=== PATIENT | male | born 1990 | race Asian ===

== ENCOUNTER 2018-12-10 00:25 | Emergency (ER) | payer OTHER ==
[~2018-12-10] VITALS: Ht 170.2 cm; Wt 99.8 kg
[2018-12-10 00:32] VITALS: BP_SYST 150
--- NOTE | 2018-12-10 00:32 | NUR ---
Patient to ER H1 to gown for evaluation. Side rails up.
--- NOTE | 2018-12-10 00:38 | NUR ---
Pt came in today for fingerstick at work. Pt administered Lovenox subcutaneously and accidentally to left thumb. Per patient, he squeezed thumb right away to drain any solution that may have been in. Pt denies any pain, N/V, or fever. No active bleeding noted. No other injuries/complaints per patient or noted.
--- NOTE | 2018-12-10 00:42 | NUR ---
ER Dr. Smith at bedside examining patient.
--- NOTE | 2018-12-10 01:05 | NUR ---
Lab at bedside obtaining blood work. pt tolerated well.
[2018-12-10 01:20] VITALS: BP_SYST 150
--- NOTE | 2018-12-10 01:20 | NUR ---
Patient given written and verbal discharge instructions and verbalizes understanding. ER MD discussed with patient the results and treatment provided. Patient in stable condition. ID arm band removed. No Rx given. Patient educated on pain management and to follow up with PMD. Pain Scale 0. Opportunity for questions provided and answered. Medication side effect fact sheet provided.
[2018-12-11 12:18] LABS: HEPATITIS B CORE AB, IgM Negative (Negative); HEPATITIS B SURFACE AG Negative (Negative); HEPATITIS C VIRUS AB <0.1 s/co ratio (0.0-0.9)
[2018-12-12 04:11] LABS: HEPATITIS Be AG Negative (Negative)
[2018-12-13 03:11] LABS: HEPATITIS Be AB Negative (Negative)
== END 2018-12-10 01:20 | disposition home or self-care (01) ==
LOC: SED 00:25
DX: S61.032A Puncture wound without foreign body of left thumb without damage to nail, initial encounter (principal); R03.0 Elevated blood-pressure reading, without diagnosis of hypertension; W46.1XXA Contact with contaminated hypodermic needle, initial encounter; Y93.89 Activity, other specified; Y92.89 Other specified places as the place of occurrence of the external cause; Y99.8 Other external cause status
CPT/HCPCS: 36415; 86705; 86706; 86707; 86803; 87340; 87350; 87536; 99283

== ENCOUNTER 2019-01-17 07:50 | Outpatient (CLI) | payer OTHER ==
[2019-01-18 08:25] LABS: HEPATITIS B CORE AB, TOTAL Negative (Negative); HEPATITIS B SURFACE AG Negative (Negative); HEPATITIS C VIRUS AB <0.1 s/co ratio (0.0-0.9)
== END 2019-01-17 21:21 | disposition home or self-care (01) ==
LOC: SLB 07:50
PROVIDERS: ATTEND Internal Medicine Hospice and Palliative Medicine
DX: Z77.21 Contact with and (suspected) exposure to potentially hazardous body fluids (principal); S60.949A Unspecified superficial injury of unspecified finger, initial encounter; W46.0XXA Contact with hypodermic needle, initial encounter; Y93.F9 Activity, other caregiving; Y92.239 Unspecified place in hospital as the place of occurrence of the external cause; Y99.0 Civilian activity done for income or pay
CPT/HCPCS: 36415; 86704; 86706; 86803; 87340

== ENCOUNTER 2019-04-23 07:40 | Outpatient (CLI) | payer OTHER ==
[2019-04-24 08:13] LABS: HEPATITIS B CORE AB, TOTAL Negative (Negative); HEPATITIS B SURFACE AG Negative (Negative); HEPATITIS C VIRUS AB <0.1 s/co ratio (0.0-0.9)
== END 2019-04-23 18:00 | disposition home or self-care (01) ==
LOC: SLB 07:40
PROVIDERS: ATTEND Internal Medicine Hospice and Palliative Medicine
DX: Z77.21 Contact with and (suspected) exposure to potentially hazardous body fluids (principal); W46.0XXA Contact with hypodermic needle, initial encounter; T14.8XXA Other injury of unspecified body region, initial encounter; Y93.F9 Activity, other caregiving; Y92.238 Other place in hospital as the place of occurrence of the external cause; Y99.0 Civilian activity done for income or pay; Z20.5 Contact with and (suspected) exposure to viral hepatitis
CPT/HCPCS: 36415; 86704; 86706; 86803; 87340

== ENCOUNTER 2019-07-28 06:48 | Outpatient (CLI) | payer OTHER ==
[2019-07-28 08:09] LABS: BASOPHILS % (AUTO) 0.4 % (0.0-2.0); EOSINOPHILS # (AUTO) 0.1 K/uL (0.0-0.4); EOSINOPHILS % (AUTO) 1.2 % (0.0-4.0); HEMATOCRIT 45.3 % (36-54); HEMOGLOBIN 15.4 g/dL (14.0-18.0); LYMPHOCYTES # (AUTO) 2.1 K/uL (1.0-5.5); MEAN CORPUSCULAR HEMOGLOBIN 31 pg (27-31); MEAN CORPUSCULAR HGB CONC 34 % (32-36); MEAN CORPUSCULAR VOLUME 90 fL (79.0-98.0); MONOCYTES # (AUTO) 0.6 K/uL (0.0-1.0); MONOCYTES % (AUTO) 6.2 % (1.7-9.3); NEUTROPHILS % (AUTO) 68.2 % (40.0-70.0); PLATELET COUNT (AUTO) 237 K/uL (130-430); RED BLOOD CELL COUNT(AUTO) 5.02 MIL/uL (4.2-6.2); RED CELL DISTRIBUTION WIDTH 12.6 % (9.0-15.0); WHITE BLOOD COUNT (AUTO) 8.8 K/uL (4.8-10.8)
[2019-07-28 08:33] LABS: CALCIUM 9.7 mg/dL (8.4-11.0); CREATININE 1.05 mg/dL (0.55-1.30); TOTAL BILIRUBIN 1.1 mg/dL (0.0-1.0)
[2019-07-28 08:34] LABS: ALBUMIN 4.5 g/dL (3.4-4.8)
[2019-07-28 11:57] LABS: THYROID STIMULATING HORMONE 1.15 uIu/mL (0.36-3.74)
[2019-07-29 09:07] LABS: HEMOGLOBIN A1C 5.5 % (4.8-5.6)
== END 2019-07-28 20:00 | disposition still patient (30) ==
LOC: SLB 06:48
PROVIDERS: ATTEND Internal Medicine
DX: Z00.01 Encounter for general adult medical examination with abnormal findings (principal)
CPT/HCPCS: 36415; 80053; 80061; 82306; 82607; 83036; 84443-TC; 84550-TC; 85025

== ENCOUNTER → 2019-10-24 | Outpatient (CLI) | payer OTHER ==
[2019-10-25 05:07] LABS: HEPATITIS B CORE AB, TOTAL Negative (Negative); HEPATITIS B SURFACE AG Negative (Negative); HEPATITIS C VIRUS AB <0.1 s/co ratio (0.0-0.9)
== END | disposition home or self-care (01) ==
LOC: SLB 08:10
PROVIDERS: ATTEND Internal Medicine Hospice and Palliative Medicine
DX: Z77.21 Contact with and (suspected) exposure to potentially hazardous body fluids (principal)
CPT/HCPCS: 36415; 86704; 86706; 86803; 87340

== ENCOUNTER 2019-12-24 09:57 | Emergency (ER) | payer OTHER ==
[~2019-12-24] VITALS: Ht 167.6 cm; Wt 117.9 kg
--- NOTE | 2019-12-24 09:57 | NUR ---
Placed in room 08. Placed on pvc monitor, blood pressure machine and pulse oximeter. To gown for exam. Side rails up.
[2019-12-24 10:00] VITALS: BP_SYST 151
--- NOTE | 2019-12-24 10:00 | NUR ---
PT CAME TO ER FOR CHEST PAIN DESCRIBED PRESSURE SINCE MONDAY.
--- NOTE | 2019-12-24 10:10 | NUR ---
ER at bedside examining patient.
[2019-12-24 10:52] LABS: BASOPHILS % (AUTO) 0.6 % (0.0-2.0); EOSINOPHILS # (AUTO) 0.2 K/uL (0.0-0.4); EOSINOPHILS % (AUTO) 3.2 % (0.0-4.0); HEMATOCRIT 46.3 % (36-54); HEMOGLOBIN 15.7 g/dL (14.0-18.0); LYMPHOCYTES # (AUTO) 2.6 K/uL (1.0-5.5); LYMPHOCYTES % (AUTO) 36.7 % (20.5-51.5); MEAN CORPUSCULAR HEMOGLOBIN 30 pg (27-31); MEAN CORPUSCULAR HGB CONC 34 % (32-36); MEAN CORPUSCULAR VOLUME 87 fL (79.0-98.0); MONOCYTES # (AUTO) 0.6 K/uL (0.0-1.0); MONOCYTES % (AUTO) 8.3 % (1.7-9.3); NEUTROPHILS # (AUTO) 3.6 K/uL (1.8-7.7); NEUTROPHILS % (AUTO) 51.2 % (40.0-70.0); PLATELET COUNT (AUTO) 245 K/uL (130-430); RED BLOOD CELL COUNT(AUTO) 5.32 MIL/uL (4.2-6.2); WHITE BLOOD COUNT (AUTO) 7.1 K/uL (4.8-10.8)
[2019-12-24 11:02] LABS: CALCIUM 9.2 mg/dL (8.4-11.0); POTASSIUM 4.1 mmol/L (3.5-5.1)
[2019-12-24 11:09] LABS: ALBUMIN 3.9 g/dL (3.4-4.8); TOTAL BILIRUBIN 0.8 mg/dL (0.0-1.0)
--- NOTE | 2019-12-24 11:30 | NUR ---
PT RESTING IN GURNEY COMFORTABLY, NO DISTRESS AT THIS TIME.
[2019-12-24 12:14] VITALS: BP_SYST 151
--- NOTE | 2019-12-24 12:14 | NUR ---
Patient given written and verbal discharge instructions and verbalizes understanding. ER MD discussed with patient the results and treatment provided. Patient in stable condition. ID arm band removed. Rx of NAPROXEN given. Patient educated on pain management and to follow up with PMD. Pain Scale 0. Opportunity for questions provided and answered. Medication side effect fact sheet provided.
== END 2019-12-24 12:14 | disposition home or self-care (01) ==
LOC: SED 09:57
DX: R07.89 Other chest pain (principal); R06.02 Shortness of breath
CPT/HCPCS: 36415; 71045; 80053; 82550-TC; 84484; 85025; 93005; 99285